=== PATIENT | male | born 1965 | race Caucasian/White ===

== ENCOUNTER 2021-06-07 05:56 | Emergency (ER) | payer MEDICAID ==
[~2021-06-07] VITALS: Ht 167.6 cm; Wt 72.6 kg
[2021-06-07 06:05] VITALS: BP_SYST 148
[2021-06-07] MEDS ORDERED: CETI1TAB2 PO ×2 (06:42→07:01)
[2021-06-07] MEDS ORDERED: FLUT16SP16 NS ×2 (06:42→07:01)
[2021-06-07 07:10] VITALS: BP_SYST 148
== END 2021-06-07 07:12 | disposition home or self-care (01) ==
LOC: SED 05:56
DX: J30.2 Other seasonal allergic rhinitis (principal); R09.82 Postnasal drip; F41.9 Anxiety disorder, unspecified; I10 Essential (primary) hypertension
CPT/HCPCS: 70360-TC; 99283

== ENCOUNTER 2023-08-13 03:37 | Emergency (ER) | payer MEDICAID ==
[~2023-08-13] VITALS: Ht 167.6 cm; Wt 77.1 kg
[~2023-08-13 03:37] MED LIST: CETI1TAB2 PO; FLUT16SP16 NS
[2023-08-13 03:50] VITALS: BP_SYST 159; PULSE 76; RESP 18; TEMP 98; O2SAT 97
[2023-08-13] MEDS: PANTOPRAZOLE SODIUM 40 MG/VIAL (PROTONIX) IVP ONE (04:24)
[2023-08-13 04:34] LABS: BASOPHILS % (AUTO) 0.5 % (0.0-2.0); EOSINOPHILS # (AUTO) 0.1 K/uL (0.0-0.4); HEMATOCRIT 43.7 % (36-54); HEMOGLOBIN 14.6 g/dL (14.0-18.0); LYMPHOCYTES # (AUTO) 4.1 K/uL (1.0-5.5); LYMPHOCYTES % (AUTO) 48.9 % (20.5-51.5); MEAN CORPUSCULAR HEMOGLOBIN 29 pg (27-31); MEAN CORPUSCULAR HGB CONC 33 % (32-36); MEAN CORPUSCULAR VOLUME 88 fL (79.0-98.0); MONOCYTES # (AUTO) 0.8 K/uL (0.0-1.0); NEUTROPHILS # (AUTO) 3.4 K/uL (1.8-7.7); NEUTROPHILS % (AUTO) 39.6 % (40.0-70.0); PLATELET COUNT (AUTO) 226 K/uL (130-430); RED BLOOD CELL COUNT(AUTO) 4.96 MIL/uL (4.2-6.2); WHITE BLOOD COUNT (AUTO) 8.5 K/uL (4.8-10.8)
[2023-08-13 04:59] LABS: ANION GAP 13 (5-15); CALCIUM 8.5 mg/dL (8.4-11.0); CARBON DIOXIDE 25 mmol/L (23-29); CHLORIDE 102 mmol/L (98-107); CREATININE 1.12 mg/dL (0.55-1.30); GFR AFRICAN AMERICAN 87 mL/min (>90); GLUCOSE 186 mg/dL (74-106); POTASSIUM 3.2 mmol/L (3.5-5.1); SODIUM SERUM 140 mmol/L (136-145); UREA NITROGEN, BLOOD 17 mg/dL (8-21)
[2023-08-13 05:00] LABS: GFR NON AFRICAN-AMERICAN 72 mL/min (>90)
[2023-08-13] MEDS: MAG-AL HYDROX/SIMETH 30 ML UDC PO ONE (05:17)
[2023-08-13] MEDS: LIDOCAINE VISCOUS 2%, 15 ML UDC MM ONE (05:17)
[2023-08-13] MEDS: LORazepam 2 MG/ML VIAL IVP ONE (05:46)
[2023-08-13] MEDS: ASPIRIN 325 MG TABLET PO ONE (05:55)
[2023-08-13] MEDS ORDERED: ASPIRIN 325 MG TABLET ONE (05:55)
[2023-08-13] MEDS ORDERED: NITROGLYCERIN 1 INCH (GM) OINT. ONE (05:59)
[2023-08-13 06:12] VITALS: BP_SYST 156; PULSE 81; RESP 12; TEMP 96.3; O2SAT 99
[2023-08-13] MEDS: NITROGLYCERIN 1 INCH (GM) OINT. TP ONE (06:17)
== END 2023-08-13 06:12 | disposition short-term general hospital (02) ==
LOC: SED 03:37
DX: I21.9 Acute myocardial infarction, unspecified (principal); I10 Essential (primary) hypertension; Z79.899 Other long term (current) drug therapy; Z79.2 Long term (current) use of antibiotics
CPT/HCPCS: 36415; 71045; 80048; 84484; 85025; 93005; 96374; 96375; 99291; C9113; J2001; J2060